=== PATIENT | female | born 1965 | race Two or more races ===

== ENCOUNTER 2025-02-06 23:10 | Inpatient (IN) | payer MEDICAID ==
[~2025-02-06] VITALS: Ht 165.1 cm; Wt 58.8 kg
[~2025-02-06 23:10] MED LIST: CLIN1CAP70 PO; TRAM-626 PO
--- NOTE | 2025-02-06 23:25 | ED.PDOC ---
HPI Comments 59-year-old female with PMHx DM, COPD, HTN brought in by EMS presents with a chief complaint of chest pain, dizziness, and nausea x 2 hours. Patient states that her chest pain started 2 hours ago, localized to her left chest, nonradiating, describes as tightness, and rates her pain a 8/10. Patient mentions that she took 324mg ASA at home prior to EMS arrival. EMS gave 0.4 NTG and 200mL of NS. Patient reports relief of chest pain from the NTG, down to a 5/10. Patient reports that this chest pain occurred at rest. Time Seen by MD: 23:18 Reviewed Notes: Medications, Allergies Allergies: Coded Allergies: Penicillins (Verified Allergy, Unknown, 01/26/25) Home Meds Active Scripts Tramadol HCl (Tramadol HCl) 50 Mg Tab, 50 MG PO TID PRN, #20 TAB Prov:JOHN SABA MD 01/27/25 Clindamycin Hcl (Clindamycin Hcl) 300 Mg Cap, 1 CAP PO TID, #30 CAP Prov:JOHN SABA MD 01/27/25 Information Source: Patient, Emergency Med Personnel Mode of Arrival: EMS Severity: Moderate Timing: Hours Duration: Since onset Prehospital treatment: Accucheck (381), ASA (324), IVF (200mL NS), NTG (0.4) Location: Chest (L) Radiation: No Radiation Quality: Tightness Onset: At Rest Cardiac Risk Factors: HTN, Diabetes PE Risk Factors: None History of: Similar pain in past Vital Signs Vital Signs Date Time Temp Pulse Resp B/P (MAP) Pulse Ox O2 Delivery O2 Flow Rate FiO2 02/07/25 01:04 105 16 140/88 02/06/25 23:10 98.9 100 98.9 Physical Exam General: Awake, alert and oriented. No acute distress. Skin: Skin in warm, dry and intact. Appropriate color for ethnicity. HEENT: The head is normocephalic and atraumatic. Conjunctivae are clear without exudates or hemorrhage. Sclera is non-icteric. EOM are intact. No signs of nystagmus. Eyelids are normal in appearance without swelling or lesions. Oral mucosa is pink and moist. Poor dentition Neck: The neck is supple with normal range of motion. No JVD. Cardiac: Rapid rate, rhythm normal. No murmurs, gallops, or rubs are auscultated. Respiratory: No signs of respiratory distress. Lung sounds are clear in all lobes bilaterally without rales, ronchi, or wheezes. Abdominal: Abdomen is soft, non-tender without distention. Bowel sounds are present and normoactive in all four quadrants. Extremities: Upper and lower extremities are atraumatic in appearance without deformity or edema. Neurological: The patient is awake, alert and oriented to person, place, and time with normal speech. Speech is clear. There is no facial asymmetry. Psychiatric: Appropriate mood and affect. Good judgement and insight. Review of Systems: REVIEW OF SYSTEMS: No fever, no chills, or fatigue HEENT: No sore throat, no earache, no congestion, no neck pain. Cardiac: Positive chest pain. Positive palpitations. Lungs: Positive shortness of breath, no cough. GI: Positive nausea, no vomiting, no diarrhea, no constipation, no abdominal pain : No dysuria, frequency, or urgency. No hematuria. Musculoskeletal: No joint pain , no joint swelling, no extremity edema. Skin: No rash, no itching. 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 Was a procedure done?: No CP Differential Dx Differential Diagnosis: Other Differential Diagnosis: CHF, HTN Essential, HTN Accelerated Differential Diagnosis: Angina, Chest Wall Pain, Costochondritis, Myocardial Infarction, Pneumonia, Pulmonary Embolus, Other X-Ray, Labs, Meds, VS Vital Signs Date Time Temp Pulse Resp B/P (MAP) Pulse Ox O2 Delivery O2 Flow Rate FiO2 02/07/25 01:04 105 16 140/88 02/07/25 00:12 106 18 151/92 02/06/25 23:25 107 02/06/25 23:10 98.9 106 18 111/65 (80) 100 98.9 Lab Test 02/07/25 00:37 02/06/25 23:37 Range/Units Troponin I High Sensitivity 5 6 </=34 ng/L White Blood Count 8.2 4.4-10.8 10^3/uL Red Blood Count 3.73 L 4.0-5.20 10^6/uL Hemoglobin 11.2 L 12.2-16.2 g/dL Hematocrit 33.2 L 36.0-46.0 % Mean Corpuscular Volume 89.1 80.0-100.0 fL Mean Corpuscular Hemoglobin 30.1 28.0-32.0 pg Mean Corpuscular Hemoglobin Concent 33.7 32.0-36.0 g/dL Red Cell Distribution Width 14.3 11.8-14.3 % Platelet Count 279 140-450 10^3/uL Mean Platelet Volume 8.3 6.9-10.8 fL Neutrophils (%) (Auto) 59.9 37.0-80.0 % Lymphocytes (%) (Auto) 26.5 10.0-50.0 % Monocytes (%) (Auto) 6.7 0.0-12.0 % Eosinophils (%) (Auto) 6.1 0.0-7.0 % Basophils (%) (Auto) 0.8 0.0-2.0 % Neutrophils # (Auto) 4.9 1.6-8.6 10 ^3/uL Lymphocytes # (Auto) 2.2 0.4-5.4 10 ^3/uL Monocytes # (Auto) 0.5 0-1.3 10 ^3/uL Eosinophils # (Auto) 0.5 0-0.8 10 ^3/uL Basophils # (Auto) 0.1 0-0.2 10 ^3/uL Nucleated Red Blood Cells 0.1 % Sodium Level 136 136-145 mmol/L Potassium Level 4.3 3.5-5.1 mmol/L Chloride Level 103 98-107 mmol/L Carbon Dioxide Level 26 20-31 mmol/L Anion Gap 7 5-15 Blood Urea Nitrogen 29 H 9-23 mg/dL Creatinine 0.80 0.550-1.02 mg/dL Glomerular Filtration Rate Calc 84 >90 mL/min BUN/Creatinine Ratio 36.3 H 10.0-20.0 Serum Glucose 370 H 74-106 mg/dL Calcium Level 9.1 8.7-10.4 mg/dL Total Bilirubin < 0.2 L 0.2-1.0 mg/dL Aspartate Amino Transferase (AST) 15 13-40 U/L Alanine Aminotransferase (ALT) 21 7-40 U/L Alkaline Phosphatase 105 46-116 U/L B-Type Natriuretic Peptide 89.92 0-100 pg/mL Total Protein 6.2 5.7-8.2 g/dL Albumin 3.6 3.2-4.8 g/dL Current Medications Medications (Trade) Dose Ordered Sig/Sheri Route Start Time Stop Time Status Last Admin Morphine Sulfate 2 mg ONCE ONCE IV 02/06/25 23:30 02/06/25 23:31 DC 02/07/25 00:12 Time of 1ST Reevaluation: 23:48 Reevaluation 1ST: Unchanged Patient Education/Counseling: Diagnosis, Treatment, Prognosis Family Education/Counseling: No Family Present Departure 1 Departure Time of Disposition: 00:34 Impression: Primary Impression: Chest pain Additional Impressions: Tachycardia Hypertension Disposition: ADMITTED INPATIENT Condition: Stable Comments 59-year-old female with multiple risk factors, has been out of medication for several days with ongoing chest pain, tachycardia and hypertension. Patient admitted for further treatment, evaluation and monitoring. Extensive evaluation was performed in attempt to identify or rule out: (See differential diagnosis section) The following tests were ordered, and results were reviewed by me and discussed with patient: (See diagnostic results section) The following test were independently interpreted by me: EKG, chest x-ray (NAD) I reviewed and agreed with the following test results read by other providers: Chest x-ray I reviewed the following notes from the pt's past medical encounters: N/A Additional information was gathered from interviewing the following independent historians: EMS personnel Discussion of management or test interpretation with external physician/other qualified health long term care social worker: N/A Addressed one or more chronic illnesses with severe exacerbation, progression, or side effects of treatment: Hypertension, diabetes, chest pain, tachycardia Decision regarding hospitalization or escalation of hospital level of care: Risk and benefits of admission for further treatment of patient's condition was considered. Due to patient's current clinical condition, high risk of decline and poor outcome if discharged and need for further inpatient management and monitoring, patient will be admitted to the hospital. Drug therapy requiring intensive monitoring for toxicity: N/A Parenteral controlled substances: IV morphine Decision regarding elective major surgery with identified patient or procedure risk factors: N/A Decision regarding emergency major surgery: N/A Decision not to resuscitate or to de-escalate care because of poor prognosis: N/A Diagnosis or treatment significantly limited by social determinants of health: N/A Critical Care Note Critical Care Time?: No Stability Stability form required: No Heart Score Heart Score: Heart Score Response (Comments) Value History Highly Suspicious 2 EKG Repolarization Disturb 1 Age 45-64 1 Risk Factors >3 or Hx ASHD 2 Troponin Normal limit 0 Total 6 I personally scribed for FIDELIA GARCÍA MD ([email or web address]) on 02/06/25 at 23:25. Electronically submitted by Ren Cash ([email or web address]). FIDELIA GARCÍA MD Feb 06, 2025 23:25
[2025-02-06 23:48] LABS: Basophils # (auto) 0.1 10 ^3/uL (0-0.2); Basophils % (auto) 0.8 % (0.0-2.0); Eosinophils # (auto) 0.5 10 ^3/uL (0-0.8); Eosinophils % (auto) 6.1 % (0.0-7.0); Hematocrit 33.2 % (36.0-46.0); Hemoglobin 11.2 g/dL (12.2-16.2); Lymphocytes # (auto) 2.2 10 ^3/uL (0.4-5.4); Lymphocytes % (auto) 26.5 % (10.0-50.0); Mean Corpuscular Hemoglobin 30.1 pg (28.0-32.0); Mean Corpuscular Hgb Conc. 33.7 g/dL (32.0-36.0); Mean Corpuscular Volume 89.1 fL (80.0-100.0); Monocytes # (auto) 0.5 10 ^3/uL (0-1.3); Monocytes % (auto) 6.7 % (0.0-12.0); Neutrophils # (auto) 4.9 10 ^3/uL (1.6-8.6); Neutrophils % (auto) 59.9 % (37.0-80.0); Nucleated Red Blood Cells % 0.1 %; Platelet Count (auto) 279 10^3/uL (140-450); Red Blood Cells 3.73 10^6/uL (4.0-5.20); Red Cell Distribution Width 14.3 % (11.8-14.3); White Blood Cell 8.2 10^3/uL (4.4-10.8)
[2025-02-07] VITALS (15 sets, daily range): BP systolic 129–152; BP diastolic 79–93; PULSE 98–107; RESP 17–20; TEMP 98–98.8; O2SAT 96–100
[2025-02-07 00:12] LABS: Alanine Aminotransferase 21 U/L (7-40); Albumin 3.6 g/dL (3.2-4.8); Alkaline Phosphatase 105 U/L (46-116); Anion Gap 7 (5-15); Aspartate Aminotransferase 15 U/L (13-40); BUN/Creatinine Ratio 36.3 (10.0-20.0); Calcium 9.1 mg/dL (8.7-10.4); Carbon Dioxide 26 mmol/L (20-31); Chloride 103 mmol/L (98-107); Potassium 4.3 mmol/L (3.5-5.1); Sodium 136 mmol/L (136-145); Total Protein 6.2 g/dL (5.7-8.2)
[2025-02-07] MEDS: MORPHINE SULFATE INJ 2 MG/ml SYRG IV ONE (00:12)
[2025-02-07 00:15] LABS: Bilirubin, Total < 0.2 mg/dL (0.2-1.0); Blood Urea Nitrogen 29 mg/dL (9-23); Glucose 370 mg/dL (74-106)
--- NOTE | 2025-02-07 00:58 | DVH ---
CHEST RADIOGRAPH Indication: cp Technique: Single frontal view of the chest was obtained Comparison: None FINDINGS: Lines and Tubes: None Lungs: Clear Pleura: No effusion. No pneumothorax. Cardiomediastinal contours: Unremarkable Bones: Unremarkable IMPRESSION: Clear lungs.
[2025-02-07] MEDS ORDERED: NITROGLYCERIN 0.4 MG SL TAB SL PRN (01:30)
[2025-02-07] MEDS ORDERED: MORPHINE SULFATE INJ 2 MG/ml SYRG IV PRN (01:30)
[2025-02-07 02:03] LABS: Urine Bacteria None Seen /hpf (None Seen)
[2025-02-07 02:36] LABS: Urine Blood Negative /uL (Negative); Urine Budding Yeast OCCASIONAL /hpf (None Seen); Urine Clarity Clear (Clear); Urine Color Light-Yellow (Yellow); Urine Protein, UAD Negative (Negative); Urine Specific Gravity 1.031 (1.001-1.035); Urine Squamous Epithelial Cell FEW /hpf (<5); Urine Urobilinogen Normal (Negative); Urine WBC 23 /HPF (0-5); Urine pH 5.5 (5.0-9.0)
[2025-02-07 02:39] LABS: COVID19 ANTIGEN SOFIA FIA NEGATIVE (NEGATIVE); Rapid Influenza A Negative (Negative); Rapid Influenza B Negative (Negative)
[2025-02-07] MEDS ORDERED: ACETAMINOPHEN 325 MG TAB PO PRN (06:30)
[2025-02-07] MEDS: IPRATROPIUM BROM 0.5 MG/2.5ML INH SOL NEB SCH (06:45)
[2025-02-07] MEDS ORDERED: LORazepam 2MG/ML-1ML VIAL IV PRN (06:45)
[2025-02-07] MEDS: levoFLOXacin 500MG 100 ML IV SCH ×2 (06:45→09:46)
[2025-02-07] MEDS: LEVALBUTEROL HCL 1.25 MG/3 ML NEB NEB SCH (06:45)
[2025-02-07] MEDS ORDERED: DEXTROSE (50%) 50ML SYRG IV PRN (06:45)
[2025-02-07] MEDS: ACCU-CHEK COMFORT CURVE STRIP VI SCH (07:00)
--- NOTE | 2025-02-07 07:05 | DVHHPRES ---
History of Present Illness Resident Creating Document: ILSA SHELDON RESIDENT History of Present Illness Ms. aSwyer, a 59-year-old female with a history of diabetes, COPD, and hypertension was brought to the emergency department by EMS with chest pain, dizziness, and nausea for 2 hours. The chest pain, described as tightness and rated 8/10, started 2 hours ago and is localized to her left chest without radiation. She took 324mg of aspirin at home before EMS arrived, who then administered 0.4mg of nitroglycerin and 200mL of normal saline, reducing her pain to 5/10. The chest pain occurred at rest. She has a verified allergy to penicillins. Cardiovascular: HTN Pulmonary: COPD Endocrine: Diabetes Past Surgical History Denies all surgeries Family History Noncontributory Smoke: # pack years (40+) Occupation: Homelessness, unemployed ALCOHOL: rare Drugs: Other (Meth) Lives: Homeless Domestic Violence: Neg Review of Systems Constitutional: No: Fever, Chills, Sweats, Weakness, Malaise, Other Eyes: No: Pain, Vision change, Conjunctivae inflammation, Eyelid inflammation, Other, Redness ENT: No: Ear pain, Ear discharge, Nose pain, Nose discharge, Nose congestion, Mouth pain, Mouth swelling, Throat pain, Throat swelling, Other Respiratory: No: Cough, Dry, Shortness of breath, SOB with excertion, Wheezing, Hemoptysis, Pleuritic Pain, Sputum, Wheezing, Other Cardiovascular: Chest Pain, Palpitations; No: Orthopnea, Paroxysmal Noc. Dyspnea, Edema, Lt Headedness Gastrointestinal: No: Nausea, Vomiting, Abdominal Pain, Diarrhea, Constipation, Melena, Hematochezia, Other Genitourinary: No Dysuria, No Frequency, No Incontinence, No Hematuria, No Retention, No Other Musculoskeletal: No: other, neck pain, shoulder pain, arm pain, back pain, hand pain, leg pain, foot pain Skin: No: Rash, Lesions, Jaundice, Bruising, Other Neurological: No: Weakness, Numbness, Incoordination, Change in speech, Confusion, Seizures, Other Allergies: Coded Allergies: Penicillins (Verified Allergy, Unknown, 01/26/25) Medications Current Medications Medications Dose Ordered Sig/Sheri Route Start Time Stop Time Status Last Admin Dose Admin Nitroglycerin 0.4 mg Q5MINP PRN SL 02/07/25 01:30 Morphine Sulfate 2 mg Q30M PRN IV 02/07/25 01:30 Insulin Glargine 15 units DAILY@1000 SC 02/07/25 10:00 Morphine Sulfate 1 mg Q4HP PRN IV 02/07/25 06:30 Acetaminophen 650 mg Q6HR PRN PO 02/07/25 06:30 Levalbuterol HCl 0.625 mg Q6HWA NEB 02/07/25 06:45 02/07/25 06:45 0.625 MG Ipratropium [place] 0.5 mg Q6HWA NEB 02/07/25 06:45 02/07/25 06:45 0.5 MG Levofloxacin/ Dextrose 100 ml @ 100 mls/hr DAILY IV 02/07/25 06:45 Lactated Ringer's 1,000 ml @ 150 mls/hr Q6H40M IV 02/07/25 06:45 Diagnostic Test (Pha) 1 strip ACHS 02/07/25 07:00 UNV Insulin Human Regular ACHS SC 02/07/25 07:00 UNV Dextrose 50 ml UD PRN IV 02/07/25 06:45 UNV Lorazepam 0.5 mg Q6HP PRN IV 02/07/25 06:45 UNV Nicotine 1 patch DAILY TD 02/07/25 10:00 UNV Exam Vital Signs Vital Signs Date Time Temp Pulse Resp B/P (MAP) Pulse Ox O2 Delivery O2 Flow Rate FiO2 02/07/25 06:49 97 Room Air* 0 21 02/07/25 06:49 99 18 02/07/25 04:37 98.8 146/93 (110) 98.8 General Appearance: Alert, Oriented X3, Cooperative, mild distress HEENT: Atraumatic, PERRLA, EOMI, Other (dry mucoa) Respiratory: Clear to auscultation, Normal air movement, Other (In room air) Cardiovascular: Regular rate, Normal S1, Normal S2, No murmurs Abdominal: Normal bowel sounds, Soft, No tenderness, No hepatospenomegaly Extremities: No clubbing, No cyanosis, No edema, Normal pulses, No tenderness/swelling Skin: No rashes, No breakdown, No significant lesion Neuro: Normal gait, Normal speech, Strength at 5/5 X4 ext, Normal tone, Sensation intact, Cranial nerves 3-12 NL, Reflexes 2+ Psych/Mental Status: Mental status NL, Mood NL Labs/Xrays Labs Test 02/07/25 02:37 02/07/25 01:58 02/06/25 23:37 Range/Units Troponin I High Sensitivity 5 </=34 ng/L Urine Color Light-yellow Yellow Urine Clarity Clear Clear Urine pH 5.5 5.0-9.0 Urine Specific [place] 1.031 1.001-1.035 Urine Protein Negative Negative Urine Ketones Negative Negative Urine Blood Negative Negative /uL Urine Nitrite Negative Negative Urine Bilirubin Negative Negative Urine Urobilinogen Normal Negative mg/dL Urine Leukocyte Esterase 1+ Negative /uL Urine RBC 2 0 - 4 /hpf Urine Microscopic WBC 23 H 0-5 /HPF Urine Squamous Epithelial Cells Few <5 /hpf Urine Bacteria None seen None Seen /hpf Urine Yeast (Budding) Occasional None Seen /hpf Urine Glucose 4+ H Normal mg/dL Influenza Type A Antigen Negative Negative Influenza Type B Antigen Negative Negative SARS-CoV-2 Antigen (Rapid) Negative NEGATIVE White Blood Count 8.2 4.4-10.8 10^3/uL Red Blood Count 3.73 L 4.0-5.20 10^6/uL Hemoglobin 11.2 L 12.2-16.2 g/dL Hematocrit 33.2 L 36.0-46.0 % Mean Corpuscular Volume 89.1 80.0-100.0 fL Mean Corpuscular Hemoglobin 30.1 28.0-32.0 pg Mean Corpuscular Hemoglobin Concent 33.7 32.0-36.0 g/dL Red Cell Distribution Width 14.3 11.8-14.3 % Platelet Count 279 140-450 10^3/uL Mean Platelet Volume 8.3 6.9-10.8 fL Neutrophils (%) (Auto) 59.9 37.0-80.0 % Lymphocytes (%) (Auto) 26.5 10.0-50.0 % Monocytes (%) (Auto) 6.7 0.0-12.0 % Eosinophils (%) (Auto) 6.1 0.0-7.0 % Basophils (%) (Auto) 0.8 0.0-2.0 % Neutrophils # (Auto) 4.9 1.6-8.6 10 ^3/uL Lymphocytes # (Auto) 2.2 0.4-5.4 10 ^3/uL Monocytes # (Auto) 0.5 0-1.3 10 ^3/uL Eosinophils # (Auto) 0.5 0-0.8 10 ^3/uL Basophils # (Auto) 0.1 0-0.2 10 ^3/uL Nucleated Red Blood Cells 0.1 % Sodium Level 136 136-145 mmol/L Potassium Level 4.3 3.5-5.1 mmol/L Chloride Level 103 98-107 mmol/L Carbon Dioxide Level 26 20-31 mmol/L Anion Gap 7 5-15 Blood Urea Nitrogen 29 H 9-23 mg/dL Creatinine 0.80 0.550-1.02 mg/dL Glomerular Filtration Rate Calc 84 >90 mL/min BUN/Creatinine Ratio 36.3 H 10.0-20.0 Serum Glucose 370 H 74-106 mg/dL Calcium Level 9.1 8.7-10.4 mg/dL Total Bilirubin < 0.2 L 0.2-1.0 mg/dL Aspartate Amino Transferase (AST) 15 13-40 U/L Alanine Aminotransferase (ALT) 21 7-40 U/L Alkaline Phosphatase 105 46-116 U/L B-Type Natriuretic Peptide 89.92 0-100 pg/mL Total Protein 6.2 5.7-8.2 g/dL Albumin 3.6 3.2-4.8 g/dL Assessment/Plan Assessment/Plan #acute chest pain: Sharp chest pain 06/12/rule out ACS: No EKG changes, acutely, keep the patient on telemetry, troponin negative, likely noncardiac. Check D-dimer, if elevated, to CTP, hemodynamically stable, in room air. Check CK # history of hypertension: Temp N, tachy sinus, hypertensive, 150/89, 140/92 Lisinopril 5 mg daily to restart #Normocytic anemia, at baseline hemoglobin 11.0-12.0: Presented at baseline no active bleeding noted, patient is counseled regarding colonoscopy. #known history of allergic to penicillins: we will avoid penicillin and cephalosporin although only 15% cross reaction #UTI: UA positive, urine culture and blood culture to follow , IV levofloxacin to continue #DMII, uncontrolled: At home supposed to use metformin 500 bid, HbA1c: 11.5, lipid panel 15, Lantus plus SSI mild, CC diet with Cardiology modification #chronic constipation lactulose 10 mg t.i.d. #COPD: Likely secondary due to chronic smoking, no exacerbation, at baseline room oxygen, CXR unremarkable, influenza and COVID negative. As needed levalbuterol +ipratropium # no nicotine abuse: active cigarette smoker, as needed nicotine patch, 11 minute bedside counseling done. #active meth abuser: Bedside counseling done, avoid beta 2 blockers to avoid alpha 1 unopposed action. IV fluid to continue, conservative management, avoid further meth lorazepam IV q.6 p.r.n. for agitation if needed. Diet: Cardiac, CC diet. DVT prophylaxis: Eliquis sc GI prophylaxis: Ppi IV Code status: Full code, discussed with bedside, patient is admitted to the hospital, patient is agreeable to the plan and further medical management. Total chart review, patient evaluation and planning took [address] Blankenship. Plan discussed with: Patient, Other (primary team RN) My Orders Orders - ILSA SHELDON RESIDENT Procedure Category Date Status Time Admit ADMIT 02/07/25 Transmitted 01:29 Nitroglycerin PHA 02/07/25 In Process Sublingual (Ntrostat 01:30 Morphine Sulfate PHA 02/07/25 In Process Injection 01:30 Oxygen By Nasal RT 02/07/25 Transmitted Cannula 01:29 Stat Ekg For Chest [facility] 02/07/25 In Process Pain 01:29 Notify Of Changes [facility] 02/07/25 In Process From Base 01:29 Stakeholder Manager For [facility] 02/07/25 In Process 24 Hours 01:29 Emergency Dysrhythmia [facility] 02/07/25 In Process Protocol 01:29 Rhythm Strips Once [facility] 02/07/25 In Process Every Shift 01:29 D-Dimer LAB 02/07/25 Logged 06:21 Bilat Lower Dvt US 02/07/25 Logged 06:21 Complete Blood Count LAB 02/07/25 Logged 06:21 Comprehensive LAB 02/07/25 Logged Metabolic Panel 06:21 Drug Screen LAB 02/07/25 Logged 06:21 Blood Alcohol LAB 02/07/25 Logged 06:21 Insulin Lantus PHA 02/07/25 In Process (Glargine) (Lantus) 10:00 Code Status CODE 02/07/25 Transmitted 06:21 Morphine Sulfate PHA 02/07/25 In Process Injection 06:30 Acetaminophen Tablet PHA 02/07/25 In Process (Tylenol Tablet) 06:30 C-Reactive Protein LAB 02/07/25 Logged 06:21 Erythrocyte LAB 02/07/25 Logged Sedimentation Rate 06:21 Levalbuterol Hcl PHA 02/07/25 In Process (Xopenex Medneb) 06:45 Ipratropium Medneb PHA 02/07/25 In Process (Atrovent Medneb) 06:45 Levofloxacin 500mg PHA 02/07/25 In Process (Levaquin 500mg/ 100m 06:45 Blood Culture PRUDENCE 02/07/25 Logged 06:32 Urine Bacterial PRUDENCE 02/07/25 Logged Culture 06:32 Lactated Ringer's PHA 02/07/25 In Process 06:45 Blood Alcohol LAB 02/07/25 Logged 06:40 Full Code VIOLET 02/07/25 In Process 06:40 Mrsa Screen PRUDENCE 02/07/25 Logged 06:41 * Steam Fitter Supervisor CONS 02/07/25 Transmitted Consult 06:41 Education - Smoking VIOLET 02/07/25 In Process Cessation 06:41 * Smoking Cessation CONS 02/07/25 Transmitted Consult 06:41 Echo 2d Mode Cardiac US 02/07/25 Logged DOP 06:42 Cardiac DIET 02/07/25 Transmitted Diet-2gna,Lofat,Lochol Breakfast * Dietary Consult CONS 02/07/25 Transmitted 06:50 Glucose Blood PHA 02/07/25 Logged (Accu-Chek Comfort 07:00 Insulin R (Human) PHA 02/07/25 Logged (Insulin R) 07:00 Dextrose 50% Syringe PHA 02/07/25 Logged 06:45 *Rn Panel Machine Operator REFER 02/07/25 Transmitted Referral 06:44 Provide Diabetic ORDERS 02/07/25 Transmitted Education 06:44 Orthostatic Vital ORDERS 02/07/25 Transmitted Signs 06:44 Communication Order ORDERS 02/07/25 Transmitted 06:44 Lorazepam 2mg/Ml Inj PHA 02/07/25 Logged (Ativan Inj) 06:45 Nicotine 14mg/24hr PHA 02/07/25 Logged (Nicoderm 14mg/24hr) 10:00 Date of Service: Feb 07, 2025 Billing Provider: WAYNE BLANKENSHIP MD, SUMAN RESIDENT Feb 07, 2025 07:05
--- NOTE | 2025-02-07 07:30 | ECG ---
[facility] Test Date: 2025-02-06 Test Time: 23:15:00 Pat Name: LETHA MUÑOZ Department: ED Room: [address] [place] [address] Gender: F Camera Tuning Engineer: : [id number] Requested By: FIDELIA GARCÍA Order Number: [id number] Reading MD: Measurements Intervals [place] Rate: 107 P: 46 MS: 142 QRS: 10 QRSD: 99 T: 82 QT: 351 QTc: 469 Interpretive Statements Sinus tachycardia Please click the below link to view image of tracing.
[2025-02-07] MEDS: LACTATED RINGER'S 1,000 ML IV SCH (07:41)
[2025-02-07] MEDS: InsuLIN REG 1unit/0.01ml Soln (100units/ml) SC SCH (07:56)
[2025-02-07 08:21] LABS: Basophils # (auto) 0.1 10 ^3/uL (0-0.2); Basophils % (auto) 0.9 % (0.0-2.0); Eosinophils # (auto) 0.6 10 ^3/uL (0-0.8); Eosinophils % (auto) 7.2 % (0.0-7.0); Hematocrit 34.2 % (36.0-46.0); Hemoglobin 11.4 g/dL (12.2-16.2); Lymphocytes # (auto) 2.8 10 ^3/uL (0.4-5.4); Lymphocytes % (auto) 34.6 % (10.0-50.0); Mean Corpuscular Hemoglobin 29.8 pg (28.0-32.0); Mean Corpuscular Hgb Conc. 33.4 g/dL (32.0-36.0); Mean Corpuscular Volume 89.5 fL (80.0-100.0); Monocytes # (auto) 0.5 10 ^3/uL (0-1.3); Monocytes % (auto) 6.2 % (0.0-12.0); Neutrophils # (auto) 4.2 10 ^3/uL (1.6-8.6); Neutrophils % (auto) 51.1 % (37.0-80.0); Platelet Count (auto) 269 10^3/uL (140-450); Red Blood Cells 3.82 10^6/uL (4.0-5.20); Red Cell Distribution Width 14.3 % (11.8-14.3); White Blood Cell 8.2 10^3/uL (4.4-10.8)
[2025-02-07 08:40] LABS: Alanine Aminotransferase 22 U/L (7-40); Albumin 3.9 g/dL (3.2-4.8); Alkaline Phosphatase 113 U/L (46-116); Anion Gap 5 (5-15); Aspartate Aminotransferase 13 U/L (13-40); BUN/Creatinine Ratio 34.2 (10.0-20.0); CRP High Sensitivity 0.29 mg/dL (<1.0); Calcium 9.7 mg/dL (8.7-10.4); Carbon Dioxide 26 mmol/L (20-31); Chloride 105 mmol/L (98-107); Potassium 4.2 mmol/L (3.5-5.1); Sodium 136 mmol/L (136-145); Total Protein 6.4 g/dL (5.7-8.2)
[2025-02-07 08:43] LABS: Bilirubin, Total 0.2 mg/dL (0.2-1.0); Blood Alcohol < 3.0 mg/dL (<10); Blood Urea Nitrogen 25 mg/dL (9-23); Creatine Kinase IFCC 26 U/L (34-145); Glucose 298 mg/dL (74-106)
[2025-02-07 09:03] LABS: Erythrocyte Sedimentation Rate 25 mm/hr (0-20)
[2025-02-07] MEDS: PANTOPRAZOLE 40 MG/10 ML VIAL INJ IV SCH (09:46)
[2025-02-07] MEDS: LISINOPRIL 5 MG TAB PO SCH (09:47)
[2025-02-07] MEDS: ENOXAPARIN SOD 40 MG/0.4 ML SYRINGE SC SCH (09:47)
[2025-02-07] MEDS: NICOTINE 14 MG/24HR TOPICAL PATCH TD SCH (09:48)
[2025-02-07] MEDS: LACTULOSE 20Gm/30ML SOLN PO SCH (09:56)
[2025-02-07] MEDS: INSULIN LANTUS (GLARGINE) 1 /0.01ml (100units/ml) SC SCH (10:12)
[2025-02-07] MEDS: ACETAMINOPHEN 325 MG TAB PO SCH (12:04)
[2025-02-07] MEDS: MAGNESIUM SULFATE 1GM/100ML 100 ML IV ONE (12:05)
--- NOTE | 2025-02-07 12:09 | DVH ---
Bilateral lower extremity venous duplex Clinical History: edema Comparison: None Findings: Duplex Doppler evaluation of the deep venous systems of both lower extremities from the common femora l veins to the popliteal veins including color Doppler and spectral/pulsed waveform analysis was perf ormed. RIGHT SIDE: The common femoral vein demonstrates appropriate compressibility and waveform variability. There is compressibility/patency of the great saphenous vein at the proximal thigh. The femoral vein demonstrates appropriate compressibility and waveform variability. The deep femoral vein demonstrates appropriate compressibility and waveform variability. The popliteal vein demonstrates appropriate compressibility and waveform variability. There is normal compressibility at the tibioperoneal trunk. LEFT SIDE: The common femoral vein demonstrates appropriate compressibility and waveform variability. There is compressibility/patency of the great saphenous vein at the proximal thigh. The femoral vein demonstrates appropriate compressibility and waveform variability. The deep femoral vein demonstrates appropriate compressibility and waveform variability. The popliteal vein demonstrates appropriate compressibility and waveform variability. There is normal compressibility at the tibioperoneal trunk. IMPRESSION: No right or left femoropopliteal venous thrombosis. If clinical concern/symptoms persist or worsen, short-interval follow-up study is suggested. END IMPRESSION:
[2025-02-07] MEDS: MORPHINE SULFATE INJ 2 MG/ml SYRG IV PRN (12:23)
--- NOTE | 2025-02-07 12:29 | DVHSR ---
APPROVED REPORT EXAM: Two-dimensional and M-mode echocardiogram with Doppler and color Doppler. Blood Pressure: 146/93 mmHg INDICATION Rule out structural heart disease RISK FACTORS Height: 65, Weight: 130 DIMENSIONS LVDd4.1 (3.8-5.7cm)LA (2D)4.2 (1.9-4.0cm)Aortic Root3.6 (2.0-3.7cm) LVDs3.1 (2.5-4.0cm)LA (MM) (1.9-4.0cm)Aortic Cusp Exc1.4 (1.5-2.0cm) EF (%) 50.0 (55-70%)Rt. Atrium4.4 (1.9-4.0cm)Asc. Aorta cm IVSd1.5 (0.7-1.1cm)RV (D) (1.8-2.4cm) PWd1.5 (0.7-1.1cm) Mitral Valve MitralMitral Stenosis E wave0.77m/sMV Mean GR.mmHg A wave1.12m/sMV Peak GR.mmHg E/A ratio0.72D MVAcm2 DECEL [id number] 1/2 Timems Aortic Valve Aortic ValveAortic Stenosis V10.96m/Isidro Mean GR.5mmHg V21.56m/Isidro Peak GR.10mmHg LVOT Diameter2.0 (1.8-2.4cm)Doppler AVA1.93cm2 Pulmonic Valve V20.83m/s Tricuspid Valve TR Velocity2.46m/s [id number] Conclusion lvef 55% mild LVH normal lv function RV normal function left atrium enlarged no severe valve abnormaliites noted
[2025-02-07 13:21] LABS: Amphetamine Screen, Urine Pos (NEGATIVE); Barbiturate Scree,Urine Neg (NEGATIVE); Benzodiazephine Screen, Urine Neg (NEGATIVE); Cannabinoid Screen, Urine Neg (NEGATIVE); Cocaine Screen, Urine Neg (NEGATIVE); Opiate Scree,Urine Neg (NEGATIVE); Phencyclidine Screen, Urine Neg (NEGATIVE)
[2025-02-07] MEDS ORDERED: cefTRIAXone 1GM/50ML D5W 50 ML IV ONE (13:30)
--- NOTE | 2025-02-07 14:07 | DVHPNRES ---
Progress Note Date Seen: Feb 07, 2025 Resident Creating Document: ONI ROJAS RESIDENT Medical Necessity Reason Pt with a Central, PICC or Fol: No Subjective Review of Systems Patient is 59 years old female with past medical history of hypertension, diabetes mellitus type 2, COPD, substance abuse methamphetamine, noncompliant with the treatment came to the ER with a complaint of chest pain. As per patient she started having chest pain yesterday while sitting, sudden onset, 8/10, tidal in nature, no radiation no aggravating or relieving factor. Patient also reported having nonproductive cough for a couple of weeks. Patient was endorsed the palpitation and nausea but no vomiting and some dizziness. On further inquiry patient also reported off and on bilateral leg swelling. Patient denied any fever, shortness of breaths, constipation or diarrhea, acute joint swelling, dysarthria or change in vision. Significant knee initial lab D- dimer 1.6, urinalysis leukocyte esterase 1+, WBC 23. COVID-19 and influenza type and B negative. EKG no significant ST-elevation. Echo 2D revealed LVEF 55%, mild LVH. Left atrial enlargement. PMH-hypertension, diabetes mellitus type 2, COPD, FH- mom and dad both had hypertension, diabetes mellitus. PSH- Allergy- clindamycin, penicillin-patient gets urticaria with the shortness of breaths on getting penicillin Personal History/ Social History- homeless, smoker, use methamphetamine, denies alcoholism Patient was seen today at the bedside. Cardiovascular- denies acute shortness of breath Respiratory denies short of breath or wheezing Gastrointestinal- denies any rectal bleeding, nausea or vomiting Musculoskeletal-left 3rd toe swollen, tender, with some blackish crust Extremity-left 3rd toe swollen, tender, with some blackish crust, swollen dorsum of the left foot Neurological- denies acute dysarthria, dysphagia, change in vision Psychiatry- denies depression or SI or HI Skin- denies acute rash or purpura Objective vital signs Vital Sign Date Time Temp Pulse Resp B/P (MAP) Pulse Ox O2 Delivery O2 Flow Rate FiO2 02/07/25 12:26 98 18 100 02/07/25 12:23 142/86 02/07/25 12:20 Room Air 0.0 02/07/25 12:20 21 02/07/25 09:00 98.1 98.1 Total Intake and Output 02/06/25 02/06/25 02/07/25 15:00 23:00 07:00 Intake Total 0 ml Output Total 0 ml Balance 0 ml medications Current Medications Medications Dose Ordered Sig/Sheri Route Start Time Stop Time Status Last Admin Dose Admin Nitroglycerin 0.4 mg Q5MINP PRN SL 02/07/25 01:30 Morphine Sulfate 2 mg Q30M PRN IV 02/07/25 01:30 Insulin Glargine 15 units DAILY@1000 SC 02/07/25 10:00 02/07/25 10:12 15 UNITS Morphine Sulfate 1 mg Q4HP PRN IV 02/07/25 06:30 02/07/25 12:23 1 MG Levalbuterol HCl 0.625 mg Q6HWA NEB 02/07/25 06:45 02/07/25 12:20 0.625 MG Ipratropium Mineral 0.5 mg Q6HWA NEB 02/07/25 06:45 02/07/25 12:20 0.5 MG Lactated Ringer's 1,000 ml @ 150 mls/hr Q6H40M IV 02/07/25 06:45 02/07/25 07:41 150 MLS/HR Diagnostic Test (Pha) 1 strip ACHS 02/07/25 07:00 02/07/25 11:51 1 STRIP Insulin Human Regular ACHS SC 02/07/25 07:00 02/07/25 12:09 3 UNITS Dextrose 50 ml UD PRN IV 02/07/25 06:45 Nicotine 1 patch DAILY TD 02/07/25 10:00 02/07/25 09:48 1 PATCH Acetaminophen 650 mg Q6HR PO 02/07/25 12:00 02/07/25 12:04 650 MG Pantoprazole Sodium 40 mg DAILY IV 02/07/25 10:00 02/07/25 09:46 40 MG Enoxaparin Sodium 40 mg DAILY SC 02/07/25 10:00 02/07/25 09:47 40 MG Lactulose 15 ml DAILY PO 02/07/25 10:00 Lisinopril 5 mg DAILY PO 02/07/25 10:00 02/07/25 09:47 5 MG Ceftriaxone Sodium 50 ml @ 100 mls/hr DAILY@09 IV 02/08/25 09:00 UNV Sodium Chloride 1,000 ml @ 100 mls/hr Q10H IV 02/07/25 13:45 Examination General examination- HEENT- PEERLA, no acute nasal discharge Cardiovascular- S1-S2 audible, rate and rhythm regular, no murmur Respiratory- CTAB, no wheeze or rhonchi Gastrointestinal-nontender, bowel sound+. Nondistended Musculoskeletal-no acute joint swelling or tenderness or redness Lower extremity- Neurological- cranial nerves intact, no acute dysarthria or dysphagia Psychiatry- denies depression or SI or HI Skin- no acute rash or purpura laboratory and microbiology Laboratory Tests 02/07/25 07:50 Test 02/07/25 07:50 Range/Units Serum Glucose 298 H 74-106 mg/dL Microbiology Date/Time Source Procedure Growth Status 02/07/25 07:30 Nose MRSA Screen - Final Complete Problem List/Assessment/Plan Problem List/Assessment/Plan Assessment and plan # acute chest pain, rule out acute coronary syndrome -LVEF 45%, LVH -troponin with a normal limit - continue aspirin 81 mg p.o. daily -continue atorvastatin 40 mg q.h.s. # acute complicated cystitis with no organ damage -continue ceftriaxone 1 g IV daily -pending uterine CS # SIRS- with no End organ damage -continue IV fluid as prescribed -continue other medications as prescribed # substance abuse-methamphetamine -patient was counseled about the effect of substance abuse on health # hypertension -continue lisinopril 5 mg daily -monitor blood pressure #Diabetes mellitus type 2 -continue insulin sliding scale as prescribed # COPD-no acute exacerbation -continue nebulization as prescribed Goals of care, Code status ; discussed with >15 minutes PUD prophylaxis: Pantoprazole DVT prophylaxis: Lovenox Plan discussed with Dr. Hebert, , nursing staff, Total time spent on patient evaluation, chart review, assessment and plan, discussion discussion >35 minutes Plan discussed with: Patient, Other (RN) My Orders My Orders Orders - ONI ROJAS RESIDENT Procedure Category Date Status Time Communication Order ORDERS 02/07/25 Transmitted 10:51 L Foot 2 View Xray XY 02/07/25 Logged 12:57 Ceftriaxone 1gm/50ml PHA 02/08/25 Logged D5w (Rocephin) 09:00 Ceftriaxone 1gm/50ml PHA 02/07/25 Logged D5w (Rocephin) 13:30 Sodium Chloride 0.9% PHA 02/07/25 In Process 13:45 ONI ROJAS RESIDENT Feb 07, 2025 14:07
[2025-02-07] MEDS ORDERED: diphenhdrAMINE HCL 50 MG/1 ML VL IV PRN (15:00)
[2025-02-07] MEDS: methylPREDNISolone SOD SUCC 40 MG/ML VL IV ONE (15:00)
--- NOTE | 2025-02-07 15:05 | DVH ---
CLINICAL INDICATION: 2nd and 3rd toe swelling, R/O OM TECHNIQUE: 2 radiographic views of the left foot were obtained. Comparison: XY L FOOT 2 VIEW XRAY on DOS: 01/25/25 FINDINGS/IMPRESSION: There is no evidence of acute fracture or dislocation. The visualized joint space is well maintained. Small plantar and posterior calcaneal enthesophytes. The alignment is anatomical. There is no radiopaque foreign body.
[2025-02-07] MEDS: GABAPENTIN 100 MG CAP PO ONE (16:31)
[2025-02-07] MEDS: ASPirin 81 mg TAB PO ONE (16:31)
[2025-02-07] MEDS: SODIUM CHLORIDE 0.9% 1,000 ML IV SCH (16:31)
[2025-02-07] MEDS: cefTRIAXone 1GM/50ML D5W 50 ML IV ONE (16:31)
--- NOTE | 2025-02-07 16:57 | ECG ---
[facility] Test Date: 2025-02-07 Test Time: 01:01:55 Pat Name: LETHA MUÑOZ Department: ER Room: [address] [place] [address] Gender: F Filing Writer: : 1965 Requested By: FIDELIA GARCÍA Order Number: [id number] Reading MD: Measurements Intervals [place] Rate: 105 P: 93 MA: 136 QRS: -18 QRSD: 100 T: 127 QT: 360 QTc: 476 Interpretive Statements Sinus tachycardia Probable left atrial enlargement Borderline left axis deviation Abnormal T, consider ischemia, lateral leads Please click the below link to view image of tracing.
[2025-02-07] MEDS: ATORVASTATIN 20 MG TAB PO SCH (21:58)
[2025-02-07] MEDS: GABAPENTIN 100 MG CAP PO SCH (21:58)
[2025-02-08] VITALS (12 sets, daily range): BP systolic 143–152; BP diastolic 85–91; PULSE 101–109; RESP 18–20; TEMP 97.8–98.7; O2SAT 97–100
[2025-02-08] MEDS: LISINOPRIL 5 MG TAB PO SCH (07:14)
[2025-02-08 07:37] LABS: Basophils # (auto) 0.1 10 ^3/uL (0-0.2); Basophils % (auto) 0.6 % (0.0-2.0); Eosinophils # (auto) 0.6 10 ^3/uL (0-0.8); Eosinophils % (auto) 5.5 % (0.0-7.0); Hematocrit 36.4 % (36.0-46.0); Hemoglobin 11.9 g/dL (12.2-16.2); Lymphocytes # (auto) 2.4 10 ^3/uL (0.4-5.4); Lymphocytes % (auto) 23.3 % (10.0-50.0); Mean Corpuscular Hemoglobin 29.2 pg (28.0-32.0); Mean Corpuscular Hgb Conc. 32.6 g/dL (32.0-36.0); Mean Corpuscular Volume 89.4 fL (80.0-100.0); Monocytes # (auto) 0.7 10 ^3/uL (0-1.3); Monocytes % (auto) 6.6 % (0.0-12.0); Neutrophils # (auto) 6.5 10 ^3/uL (1.6-8.6); Platelet Count (auto) 283 10^3/uL (140-450); Red Blood Cells 4.07 10^6/uL (4.0-5.20); Red Cell Distribution Width 14.2 % (11.8-14.3); White Blood Cell 10.1 10^3/uL (4.4-10.8)
[2025-02-08 08:01] LABS: Anion Gap 8 (5-15); Calcium 9.5 mg/dL (8.7-10.4); Carbon Dioxide 26 mmol/L (20-31); Chloride 104 mmol/L (98-107); Potassium 3.8 mmol/L (3.5-5.1); Sodium 138 mmol/L (136-145)
[2025-02-08 08:07] LABS: BUN/Creatinine Ratio 31.3 (10.0-20.0); Blood Urea Nitrogen 20 mg/dL (9-23); Magnesium 1.9 mg/dL (1.6-2.6); Triglycerides 93 mg/dL (< 150)
[2025-02-08 08:08] LABS: Glucose 135 mg/dL (74-106); LDL Cholesterol 80 mg/dL (< 100)
[2025-02-08 08:09] LABS: Cholesterol 137 mg/dL (< 200); HDL Cholesterol 43 mg/dL (40-59)
[2025-02-08] MEDS ORDERED: cefTRIAXone 1GM/50ML D5W 50 ML IV SCH (09:00)
[2025-02-08] MEDS: cefTRIAXone 1GM/50ML D5W 50 ML IV SCH (09:05)
[2025-02-08] MEDS: ASPirin 81 mg TAB PO SCH (09:06)
[2025-02-08] MEDS ORDERED: levoFLOXacin 500MG 100 ML IV SCH (10:00)
[2025-02-08] MEDS: amLODIPine BESYLATE 5 MG TAB PO ONE (13:00)
--- NOTE | 2025-02-08 13:29 | DVHDSRES ---
Discharge Summary Date of Admission Resident Creating Document: ONI ROJAS RESIDENT Feb 07, 2025 at 01:29 Date of Discharge: Feb 08, 2025 Admitting Diagnosis Acute chest pain, rule out acute coronary syndrome Labs/Diagnostic Data: Laboratory Results Test 02/08/25 06:03 02/08/25 05:51 02/07/25 07:50 02/07/25 02:37 White Blood Count 10.1 10^3/uL (4.4-10.8) Red Blood Count 4.07 10^6/uL (4.0-5.20) Hemoglobin 11.9 g/dL (12.2-16.2) Hematocrit 36.4 % (36.0-46.0) Mean Corpuscular Volume 89.4 fL (80.0-100.0) Mean Corpuscular Hemoglobin 29.2 pg (28.0-32.0) Mean Corpuscular Hemoglobin Concent 32.6 g/dL (32.0-36.0) Red Cell Distribution Width 14.2 % (11.8-14.3) Platelet Count 283 10^3/uL (140-450) Mean Platelet Volume 8.2 fL (6.9-10.8) Neutrophils (%) (Auto) 64.0 % (37.0-80.0) Lymphocytes (%) (Auto) 23.3 % (10.0-50.0) Monocytes (%) (Auto) 6.6 % (0.0-12.0) Eosinophils (%) (Auto) 5.5 % (0.0-7.0) Basophils (%) (Auto) 0.6 % (0.0-2.0) Neutrophils # (Auto) 6.5 10 ^3/uL (1.6-8.6) Lymphocytes # (Auto) 2.4 10 ^3/uL (0.4-5.4) Monocytes # (Auto) 0.7 10 ^3/uL (0-1.3) Eosinophils # (Auto) 0.6 10 ^3/uL (0-0.8) Basophils # (Auto) 0.1 10 ^3/uL (0-0.2) Nucleated Red Blood Cells 0.0 % Sodium Level 138 mmol/L (136-145) Potassium Level 3.8 mmol/L (3.5-5.1) Chloride Level 104 mmol/L (98-107) Carbon Dioxide Level 26 mmol/L (20-31) Anion Gap 8 (5-15) Blood Urea Nitrogen 20 mg/dL (9-23) Creatinine 0.64 mg/dL (0.550-1.02) Glomerular Filtration Rate Calc 101 mL/min (>90) BUN/Creatinine Ratio 31.3 (10.0-20.0) Serum Glucose 135 mg/dL (74-106) Calcium Level 9.5 mg/dL (8.7-10.4) Magnesium Level 1.9 mg/dL (1.6-2.6) Triglycerides Level 93 mg/dL (< 150) Cholesterol Level 137 mg/dL (< 200) LDL Cholesterol 80 mg/dL (< 100) HDL Cholesterol 43 mg/dL (40-59) POC Glucose 136 mg/dl (70-106) Erythrocyte Sedimentation Rate 25 mm/hr (0-20) D-Dimer, Quantitative 1.66 mg/L FEU (0.0-0.49) Total Bilirubin 0.2 mg/dL (0.2-1.0) Aspartate Amino Transferase (AST) 13 U/L (13-40) Alanine Aminotransferase (ALT) 22 U/L (7-40) Alkaline Phosphatase 113 U/L (46-116) Creatine Kinase 26 U/L (34-145) C-Reactive Protein High Sensitivity 0.29 mg/dL (<1.0) Total Protein 6.4 g/dL (5.7-8.2) Albumin 3.9 g/dL (3.2-4.8) Thyroid Stimulating Hormone (TSH) 2.83 uIU/mL (0.55-4.78) Plasma/Serum Blood Alcohol < 3.0 mg/dL (<10) Troponin I High Sensitivity 5 ng/L (</=34) Test 02/07/25 01:58 02/06/25 23:37 Urine Color Light-yellow (Yellow) Urine Clarity Clear (Clear) Urine pH 5.5 (5.0-9.0) Urine Specific [place] 1.031 (1.001-1.035) Urine Protein Negative (Negative) Urine Ketones Negative (Negative) Urine Blood Negative /uL (Negative) Urine Nitrite Negative (Negative) Urine Bilirubin Negative (Negative) Urine Urobilinogen Normal mg/dL (Negative) Urine Leukocyte Esterase 1+ /uL (Negative) Urine RBC 2 /hpf (0 - 4) Urine Microscopic WBC 23 /HPF (0-5) Urine Squamous Epithelial Cells Few /hpf (<5) Urine Bacteria None seen /hpf (None Seen) Urine Yeast (Budding) Occasional /hpf (None Urine Glucose 4+ mg/dL (Normal) Urine Opiates Screen Neg (NEGATIVE) Urine Fentanyl Screen Neg (NEGATIVE) Urine Barbiturates Screen Neg (NEGATIVE) Urine Phencyclidine Screen Neg (NEGATIVE) Urine Amphetamines Screen Pos (NEGATIVE) Urine Benzodiazepines Screen Neg (NEGATIVE) Urine Cocaine Screen Neg (NEGATIVE) Urine Cannabinoids Screen Neg (NEGATIVE) Influenza Type A Antigen Negative (Negative) Influenza Type B Antigen Negative (Negative) SARS-CoV-2 Antigen (Rapid) Negative (NEGATIVE) B-Type Natriuretic Peptide 89.92 pg/mL (0-100) Other Laboratory Tests 02/08/25 06:03 Brief Hx & Hospital Course: HPI-Patient is 59 years old female with past medical history of hypertension, diabetes mellitus type 2, COPD, substance abuse methamphetamine, noncompliant with the treatment came to the ER with a complaint of chest pain. As per patient she started having chest pain yesterday while sitting, sudden onset, 8/10, tidal in nature, no radiation no aggravating or relieving factor. Patient also reported having nonproductive cough for a couple of weeks. Patient was endorsed the palpitation and nausea but no vomiting and some dizziness. On further inquiry patient also reported off and on bilateral leg swelling. Patient denied any fever, shortness of breaths, constipation or diarrhea, acute joint swelling, dysarthria or change in vision. Significant knee initial lab D- dimer 1.6, urinalysis leukocyte esterase 1+, WBC 23. COVID-19 and influenza type and B negative. EKG no significant ST-elevation. Echo 2D revealed LVEF 55%, mild LVH. Left atrial enlargement. Discharge summary-Patient is 59 years old female with past medical history of hypertension, diabetes mellitus type 2, COPD, substance abuse methamphetamine, noncompliant with the treatment came to the ER with a complaint of chest pain. As per patient she started having chest pain yesterday while sitting, sudden onset, 8/10, tidal in nature, no radiation no aggravating or relieving factor. Patient also reported having nonproductive cough for a couple of weeks. Patient was endorsed the palpitation and nausea but no vomiting and some dizziness. On further inquiry patient also reported off and on bilateral leg swelling. . Significant knee initial lab D-dimer 1.6, urinalysis leukocyte esterase 1+, WBC 23. COVID-19 and influenza type and B negative. EKG no significant ST- elevation. Echo 2D revealed LVEF 55%, mild LVH. Left atrial enlargement. MRSA screen negative, blood culture negative. Patient's symptom improved with the conservative management. Patient was seen by Podiatry, recommendation reviewed and appreciated. Patient is being discharged home with Keflex 500 mg p.o. b.i.d. for 7 days for acute complicated cystitis and also for left foot cellulitis. Patient's meds were sent to the pharmacy electronically. Patient is advised to follow up with the primary care physician in 1 week and also to follow up with the Podiatry as outpatient in 1-2 weeks. Patient verbalized understanding. Patient was hemodynamically stable on discharge. Discharge diagnosis # acute chest pain likely due to substance abuse amphetamine # acute chest pain, ruled out acute coronary syndrome # ruled out acute cardiac arrhythmia # Acute complicated cystitis with no organ damage # substance abuse-methamphetamine # left foot cellulitis # Hypertension #Diabetes mellitus type 2 # COPD-no acute exacerbation Discharge pain Continue aspirin 81 mg p.o. daily Continue lisinopril 5 mg p.o. daily Keflex 500 mg p.o. b.i.d. for 70 Continue atorvastatin 40 mg p.o. q.h.s. Continue metformin 500 mg p.o. b.i.d. Continue famotidine 20 mg p.o. daily Follow up with the primary care physician in 1 week Patient was counseled about the effect of substance abuse on health Patient was counseled about the importance of med compliance, patient verbalized understanding Please follow up with the Podiatry as outpatient for left foot cellulitis Condition at Discharge: Stable Final Diagnosis/Problems List # acute chest pain likely due to substance abuse amphetamine # acute chest pain, ruleD out acute coronary syndrome # ruled out acute cardiac arrhythmia # Acute complicated cystitis with no organ damage # substance abuse-methamphetamine # left foot cellulitis # Hypertension #Diabetes mellitus type 2 # COPD-no acute exacerbation Discharge Disposition: Home Discharge Instruct/Medications Follow Up/Referral: Follow up with the primary care physician in 1 week Please follow up with your consumer lending manager in 1-2 weeks for mini stress test Medications: Continue aspirin 81 mg p.o. daily Continue lisinopril 5 mg p.o. daily Keflex 500 mg p.o. b.i.d. for 70 Continue atorvastatin 40 mg p.o. q.h.s. Continue metformin 500 mg p.o. b.i.d. Continue famotidine 20 mg p.o. daily Follow up with the primary care physician in 1 week Patient was counseled about the effect of substance abuse on health Patient was counseled about the importance of med compliance, patient verbalized understanding Please follow up with the Podiatry as outpatient for left foot cellulitis Discharge Statement: "Patient was advised to return to the ER or call 911 if any headaches, dizziness, shortness of breath, chest pain, abdominal pain, bleeding, fevers, or worsening of medical condition. Patient was counseled about treatment plan, medications, possible side effects, patientverbalized understanding. All questions were answered to the best of my ability. This discharge took greater then 30 minutes in planning, reviewing documentation, counseling the patient, and discussing with other team members." ASSESSMENT ASSESSMENT Assessment ONI ROJAS RESIDENT Feb 08, 2025 13:29
[2025-02-08] MEDS ORDERED: ATOR40TA52 PO (13:32)
[2025-02-08] MEDS ORDERED: FAMO-12 PO (13:32)
[2025-02-08] MEDS ORDERED: ASPI-498 OR (13:32)
--- NOTE | 2025-02-08 13:36 | DVHINCON2 ---
Date Seen: Feb 08, 2025 Reason for Consultation Left foot swelling History of Present Illness Ms. Sawyer, a 59-year-old female with a history of diabetes, COPD, and hypertension was brought to the emergency department by EMS with chest pain, dizziness, and nausea for 2 hours. The chest pain, described as tightness and rated 8/10, started 2 hours ago and is localized to her left chest without radiation. She took 324mg of aspirin at home before EMS arrived, who then administered 0.4mg of nitroglycerin and 200mL of normal saline, reducing her pain to 5/10. The chest pain occurred at rest. She has a verified allergy to penicillins. Past Medical History See H&P Past Surgical History See H&P Family History: Patient reports no known family medical history. Allergies: Coded Allergies: Clindamycin (Verified Allergy, Unknown, 02/07/25) itchy Penicillins (Verified Allergy, Unknown, 01/26/25) Current Medications Current Medications Medications (Trade) Dose Ordered Sig/Sheri Route PRN Reason Start Time Stop Time Status Last Admin Ceftriaxone Sodium 50 ml @ 100 mls/hr DAILY@09 IV 02/08/25 09:00 02/07/25 14:27 DC Sodium Chloride 1,000 ml @ 100 mls/hr Q10H IV 02/07/25 13:45 02/08/25 09:24 Aspirin 81 mg DAILY PO 02/08/25 10:00 02/08/25 09:06 Atorvastatin Calcium (Lipitor) 40 mg HS PO 02/07/25 22:00 02/07/25 21:58 Levofloxacin/ Dextrose 100 ml @ 100 mls/hr DAILY IV 02/08/25 10:00 02/07/25 14:37 DC Ceftriaxone Sodium 50 ml @ 100 mls/hr DAILY@09 IV 02/08/25 09:00 02/08/25 09:05 Gabapentin (Neurontin Capsule) 100 mg BID PO 02/07/25 22:00 02/08/25 09:07 Diphenhydramine HCl (Benadryl Injection) 25 mg Q6HP PRN IV FOR ITCHING 02/07/25 15:00 Lisinopril (Zestril Tablet) 10 mg DAILY PO 02/08/25 06:45 02/08/25 07:26 DC 02/08/25 07:14 Lisinopril (Zestril Tablet) 10 mg DAILY PO 02/09/25 10:00 Vital Signs Vital Signs Date Time Temp Pulse Resp B/P (MAP) Pulse Ox O2 Delivery O2 Flow Rate FiO2 02/08/25 13:22 104 20 100 02/08/25 13:14 Room Air* 0 21 02/08/25 13:00 152/85 02/08/25 09:00 97.8 97.8 Physical Exam DERMATOLOGIC EXAM: - Skin is dry and cool to the touch dry bilaterally. - Nails 1-5 of the bilateral foot are thickened, discolored, dystrophic, and tender to palpate with subungual debris - Hair loss noted to bilateral feet - left foot swelling redness VASCULAR EXAM: - DP and PT pulses are palpable bilaterally. 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 - Feet are cool to touch compared to lower legs bilaterally. NEUROLOGIC EXAM: - Normal light touch sensation to the superficial peroneal, deep peroneal, sural, saphenous, and tibial nerve branches. - Protective sensation is diminished as tested with a 5.07 10g [place]-Basim bilaterally. MUSCULOSKELETAL EXAM: - No gross deformities - Muscle strength is 5/5 and active motion is pain-free and symmetrical bilaterally - No pain or crepitation with passive range of motion bilaterally to all major pedal joints Labs/Diagnostic Data Labs Test 02/08/25 06:03 02/08/25 05:51 02/07/25 07:50 02/07/25 02:37 Range/Units White Blood Count 10.1 4.4-10.8 10^3/uL Red Blood Count 4.07 4.0-5.20 10^6/uL Hemoglobin 11.9 L 12.2-16.2 g/dL Hematocrit 36.4 36.0-46.0 % Mean Corpuscular Volume 89.4 80.0-100.0 fL Mean Corpuscular Hemoglobin 29.2 28.0-32.0 pg Mean Corpuscular Hemoglobin Concent 32.6 32.0-36.0 g/dL Red Cell Distribution Width 14.2 11.8-14.3 % Platelet Count 283 140-450 10^3/uL Mean Platelet Volume 8.2 6.9-10.8 fL Neutrophils (%) (Auto) 64.0 37.0-80.0 % Lymphocytes (%) (Auto) 23.3 10.0-50.0 % Monocytes (%) (Auto) 6.6 0.0-12.0 % Eosinophils (%) (Auto) 5.5 0.0-7.0 % Basophils (%) (Auto) 0.6 0.0-2.0 % Neutrophils # (Auto) 6.5 1.6-8.6 10 ^3/uL Lymphocytes # (Auto) 2.4 0.4-5.4 10 ^3/uL Monocytes # (Auto) 0.7 0-1.3 10 ^3/uL Eosinophils # (Auto) 0.6 0-0.8 10 ^3/uL Basophils # (Auto) 0.1 0-0.2 10 ^3/uL Nucleated Red Blood Cells 0.0 % Sodium Level 138 136-145 mmol/L Potassium Level 3.8 3.5-5.1 mmol/L Chloride Level 104 98-107 mmol/L Carbon Dioxide Level 26 20-31 mmol/L Anion Gap 8 5-15 Blood Urea Nitrogen 20 9-23 mg/dL Creatinine 0.64 0.550-1.02 mg/dL Glomerular Filtration Rate Calc 101 >90 mL/min BUN/Creatinine Ratio 31.3 H 10.0-20.0 Serum Glucose 135 H 74-106 mg/dL Calcium Level 9.5 8.7-10.4 mg/dL Magnesium Level 1.9 1.6-2.6 mg/dL Triglycerides Level 93 < 150 mg/dL Cholesterol Level 137 < 200 mg/dL LDL Cholesterol 80 < 100 mg/dL HDL Cholesterol 43 40-59 mg/dL POC Glucose 136 H 70-106 mg/dl Erythrocyte Sedimentation Rate 25 H 0-20 mm/hr D-Dimer, Quantitative 1.66 H 0.0-0.49 mg/L FEU Total Bilirubin 0.2 0.2-1.0 mg/dL Aspartate Amino Transferase (AST) 13 13-40 U/L Alanine Aminotransferase (ALT) 22 7-40 U/L Alkaline Phosphatase 113 46-116 U/L Creatine Kinase 26 L 34-145 U/L C-Reactive Protein High Sensitivity 0.29 <1.0 mg/dL Total Protein 6.4 5.7-8.2 g/dL Albumin 3.9 3.2-4.8 g/dL Thyroid Stimulating Hormone (TSH) 2.83 0.55-4.78 uIU/mL Plasma/Serum Blood Alcohol < 3.0 <10 mg/dL Troponin I High Sensitivity 5 </=34 ng/L Test 02/07/25 01:58 02/06/25 23:37 Range/Units Urine Color Light-yellow Yellow Urine Clarity Clear Clear Urine pH 5.5 5.0-9.0 Urine Specific [place] 1.031 1.001-1.035 Urine Protein Negative Negative Urine Ketones Negative Negative Urine Blood Negative Negative /uL Urine Nitrite Negative Negative Urine Bilirubin Negative Negative Urine Urobilinogen Normal Negative mg/dL Urine Leukocyte Esterase 1+ Negative /uL Urine RBC 2 0 - 4 /hpf Urine Microscopic WBC 23 H 0-5 /HPF Urine Squamous Epithelial Cells Few <5 /hpf Urine Bacteria None seen None Seen /hpf Urine Yeast (Budding) Occasional None Seen /hpf Urine Glucose 4+ H Normal mg/dL Urine Opiates Screen Neg NEGATIVE Urine Fentanyl Screen Neg NEGATIVE Urine Barbiturates Screen Neg NEGATIVE Urine Phencyclidine Screen Neg NEGATIVE Urine Amphetamines Screen Pos NEGATIVE Urine Benzodiazepines Screen Neg NEGATIVE Urine Cocaine Screen Neg NEGATIVE Urine Cannabinoids Screen Neg NEGATIVE Influenza Type A Antigen Negative Negative Influenza Type B Antigen Negative Negative SARS-CoV-2 Antigen (Rapid) Negative NEGATIVE B-Type Natriuretic Peptide 89.92 0-100 pg/mL Microbiology Date/Time Source Procedure Growth Status 02/07/25 07:50 Blood Blood Culture - Preliminary NO GROWTH AFTER 24 HOURS OF INCUBATION. Resulted 02/07/25 07:30 Nose MRSA Screen - Final Complete 02/07/25 01:58 Voided Urine Urine Culture - Preliminary Resulted Problems(with codes): (1) Uncontrolled diabetes mellitus (2) Cellulitis of left lower extremity (3) Tachycardia (4) Chest pain (5) Hypertension Plan/Recommendation ASSESSMENT: Patient is a 59 year old seen on the floor for left foot swelling PLAN: - The patients chart was reviewed, clinical findings were discussed with the patient, the etiologies of the conditions were discussed in detail, and a treatment plan was agreed to at this time, with both oral and written instructions provided. - reviewed advanced imaging - discussed that she has cellulitis of the toe and it can be treated with p.o. antibiotics - patient can follow up with me 1 week after discharge for diabetic foot care - no dressings needed at this point - no surgery indicated at this point All questions were answered and concerns addressed to the patient's satisfaction. The patient was given the phone number to the clinic and was told how to make contact with the clinic should any concerns or questions arise. Patient understands that if any questions or concerns arise prior to the next appointment, we should be contacted immediately. FOLLOW-UP: Follow up with me as an outpatient Plan discussed with: Patient Date of Service: Feb 08, 2025 Billing Provider: NOBLE HARRELL DPM Common Visit Codes: CONSULT ONLY Consultation Codes: [id number] CONSULT <80MIN NOBLE HARRELL DPM Feb 08, 2025 13:36
[2025-02-08] MEDS ORDERED: LISI20TA56 PO (15:40)
[2025-02-08] MEDS ORDERED: METF-372 PO (15:40)
[2025-02-08] MEDS ORDERED: IPRAAER6 IN (15:40)
[2025-02-08] MEDS ORDERED: CEPH250C PO (17:11)
[2025-02-09] MEDS ORDERED: LISINOPRIL 5 MG TAB PO SCH (10:00)
== END 2025-02-08 16:50 | disposition home or self-care (01) | DRG 463 ==
LOC: ER 23:10 → EDBD 23:10 → OVERFLOW 02-07 01:29 → TELE-EAST 02-07 04:23
PROVIDERS: ADMIT Student in an Organized Health Care Education/Training Program; ATTEND Student in an Organized Health Care Education/Training Program
DX: N30.00 Acute cystitis without hematuria (principal); R65.10 Systemic inflammatory response syndrome (SIRS) of non-infectious origin without acute organ dysfunction; L03.116 Cellulitis of left lower limb; F15.10 Other stimulant abuse, uncomplicated; E11.9 Type 2 diabetes mellitus without complications; D64.9 Anemia, unspecified; F17.210 Nicotine dependence, cigarettes, uncomplicated; R07.89 Other chest pain; Z20.822 Contact with and (suspected) exposure to COVID-19; J44.9 Chronic obstructive pulmonary disease, unspecified; K59.00 Constipation, unspecified; I10 Essential (primary) hypertension; Z59.00 Homelessness unspecified; Z88.0 Allergy status to penicillin; Z79.899 Other long term (current) drug therapy; Z83.3 Family history of diabetes mellitus; Z82.49 Family history of ischemic heart disease and other diseases of the circulatory system; Z98.891 History of uterine scar from previous surgery; Z88.1 Allergy status to other antibiotic agents
CPT/HCPCS: 36415; 73620; 80048; 80053; 80061; 80307; 80320; 81001; 82550; 82962; 83735; 83880; 84443; 84484; 85025; 85379; 85652; 86141; 87040; 87081; 87086; 87426; 87804; 93005; 93306; 93970; 94640; G0378; J1815; J1956; J2470